=== PATIENT | female | born 1985 | race Caucasian/White ===

== ENCOUNTER 2016-05-30 20:31 | Emergency (ER) | payer OTHER ==
[2015-04-08 07:51] VITALS: BMI 33.2
[2016-05-30 21:20] LABS: APPEARANCE TURBID (CLEAR); BILIRUBIN NEGATIVE (NEGATIVE); COLOR YELLOW (YELLOW); GLUCOSE NEGATIVE (NEGATIVE); KETONE NEGATIVE (NEGATIVE); LEUKOCYTE ESTERASE TRACE (NEGATIVE); NITRITE NEGATIVE (NEGATIVE); PROTEIN TRACE mg/dL (NEGATIVE); SPECIFIC GRAVITY 1.025 (1.005-1.020); UROBILINOGEN NORMAL (NORMAL)
[2016-05-30 21:21] LABS: EPITHELIAL CELLS 0-5 /hpf (0-5); WHITE CELLS - URINE 0-5 /hpf (0-5)
[2016-05-30 21:22] LABS: BACTERIA MANY /hpf (NONE SEEN)
[2016-05-30 21:41] LABS: HCG SERUM NEGATIVE (NEGATIVE)
[2016-05-30 22:34] LABS: BASOPHILS 0.3 % (0.0-2.0); EOSINOPHILS 0.7 % (0-7); HEMATOCRIT 44.2 % (36.0-48.0); HEMOGLOBIN 15.1 g/dL (12-16); IMMATURE GRANULOCYTES 0.2 % (0-5); LYMPHOCYTES 12.3 % (15-50); MCH 27.2 pg (26.0-34.0); MCHC 34.2 g/dL (31.0-37.0); MCV 79.5 fL (80.0-100.0); MEAN PLATELET VOLUME 11.5 fL (7.4-10.4); MONOCYTES 4.5 % (2-11); PLATELET COUNT 225 10x3/uL (130-400); RBC 5.56 10x6/uL (4.00-5.40); RDW 13.4 % (11.5-14.5); WBC 12.3 10x3/uL (4.8-10.8)
[2016-05-30 22:49] LABS: ALBUMIN 4.5 g/dL (3.4-5.0); ALKALINE PHOSPHATASE 68 U/L (46-116); ALT (SGPT) 109 U/L (10-68); BILIRUBIN - TOTAL 0.57 mg/dL (0.2-1.3); CALC OSMOLALITY 282 mosm/kg (275-300); CALCIUM 9.1 mg/dL (8.5-10.1); CARBON DIOXIDE 24.7 mmol/L (21.0-32.0); CHLORIDE - SERUM 103 mmol/L (98-107); CREATININE - SERUM 0.8 mg/dL (0.6-1.3); GLUCOSE 127 mg/dL (74-106); PROTEIN - SERUM 7.9 g/dL (6.4-8.2); SODIUM 141 mmol/L (136-145); UREA NITROGEN 12 mg/dL (7-18); eGFR NON AFRICAN AMERICAN 90 mL/min (90-120)
== END 2016-05-30 23:39 | disposition home or self-care (01) ==
LOC: D.ER 20:31
PROVIDERS: Emergency Medicine; Nurse Practitioner Family
DX: N23 Unspecified renal colic (principal); N20.1 Calculus of ureter; N39.0 Urinary tract infection, site not specified

== ENCOUNTER → 2017-09-19 07:28 | Outpatient (CLI) | payer OTHER ==
[2015-04-08 07:51] VITALS: BMI 33.2
[~2017-09-19 07:28] MED LIST: IBUDONE 10-2001 TAB PO; LOPRESSOR25 MG PO; OMEGA-3100 MG PO
== END | disposition home or self-care (01) ==
LOC: D.NM 07:28
DX: K80.20 Calculus of gallbladder without cholecystitis without obstruction (principal)

== ENCOUNTER 2017-10-25 07:30 | Day surgery (SDC) | payer OTHER ==
[2017-10-23 09:22] LABS: EOSINOPHILS 2.7 % (0-7); HEMATOCRIT 45.3 % (36.0-48.0); HEMOGLOBIN 15.7 g/dL (12-16); IMMATURE GRANULOCYTES 0.2 % (0-5); LYMPHOCYTES 37.4 % (15-50); MCH 27.5 pg (26.0-34.0); MCHC 34.7 g/dL (31.0-37.0); MCV 79.3 fL (80.0-100.0); MEAN PLATELET VOLUME 10.9 fL (7.4-10.4); MONOCYTES 8.9 % (2-11); NEUTROPHILS 49.8 % (40-80); PLATELET COUNT 200 10x3/uL (130-400); RBC 5.71 10x6/uL (4.00-5.40); RDW 13.1 % (11.5-14.5); WBC 5.2 10x3/uL (4.8-10.8)
[2017-10-23 09:32] LABS: CALC OSMOLALITY 270 mosm/kg (275-300); CALCIUM 8.6 mg/dL (8.5-10.1); CARBON DIOXIDE 27.1 mmol/L (21.0-32.0); CHLORIDE - SERUM 104 mmol/L (98-107); CREATININE - SERUM 0.9 mg/dL (0.6-1.3); GLUCOSE 106 mg/dL (74-106); POTASSIUM - SERUM 4.1 mmol/L (3.5-5.1); SODIUM 136 mmol/L (136-145); UREA NITROGEN 9 mg/dL (7-18); eGFR NON AFRICAN AMERICAN 78 mL/min (90-120)
[~2017-10-25] VITALS: Ht 167.6 cm; Wt 89.4 kg
--- NOTE | ~2017-10-25 | OP ---
PATIENT NAME: GODFREY CANALES MEDICAL RECORD: [id number] :89 LOCATION:D.OPS ADMISSION DATE: SURGEON: JAN OJEDA MD DATE OF OPERATION: 10/25/2017 PREOPERATIVE DIAGNOSES: 1. Gallstones. 2. Elevated liver function tests. 3. Hypertension. POSTOPERATIVE DIAGNOSES: 1. Gallstones. 2. Elevated liver function tests. 3. Hypertension. PROCEDURES: 1. Laparoscopic cholecystectomy. 2. Liver biopsy. SURGEON: Jan Ojeda MD REPORT OF PROCEDURE: The patient's abdomen was prepped and draped in sterile fashion. A semicircular incision was made on the inferior aspect of the umbilicus, 0 Vicryls were placed in the fascia bilaterally and the fascia was incised with a 15-blade. I then bluntly entered the peritoneal cavity and placed a 12-mm Kamryn port. Under direct visualization, a 5 mm trocar was placed in the epigastrium and 2 more 5-mm trocars were placed in the right subcostal region. The gallbladder was elevated. The cystic artery and cystic duct were dissected free and these were clipped proximally and distally and ligated in standard fashion. The gallbladder was taken off the liver bed using electrocautery and placed into an Endo Catch bag. The right upper quadrant was irrigated out and any bleeding that was found was treated with electrocautery. At this point, a liver biopsy tool was inserted and 4 separate biopsies were performed with a Mahamed-Cut 14-gauge biopsy device. Any bleeding from the liver bed was then treated with electrocautery. At the conclusion of the case, there was no sign of any active bleeding. At this point, the ports and insufflation were then removed and the gallbladder was taken out through the umbilicus. The umbilical fascia was closed with interrupted 0 Vicryls times 3. The wounds were then irrigated out with normal saline and infused with 10 mL of 0.25% Marcaine with epinephrine. The skin incisions were all closed with subcutaneous 5-0 Monocryl and dressed appropriately. COMPLICATIONS: None. CONDITION: Stable. ANESTHESIA: General endotracheal and local. BLOOD LOSS: Minimal. TRANSINT:[id number] Voice Confirmation ID: [id number] DOCUMENT ID: [id number] OPERATIVE REPORT [id number] GODFREY CANALES JAN OJEDA MD at 1041 CC: SHARI,CRAIG ANP [id number] DICTATION DATE: 10/25/17 1151 CHIEF PILOT: 10/25/17 1157 [facility] [place] 10/25/17 [id number] [place] [id number]
[~2017-10-25 07:30] MED LIST changes: -IBUDONE 10-2001 TAB PO
[2017-10-25 09:07] LABS: HCG URINE NEGATIVE (NEGATIVE)
[2017-10-25 09:15] VITALS: BP 141/91; Ht 167.6 cm; Wt 89.4 kg
[2017-10-25] MEDS ORDERED: IBUDONE 10-2001 TAB PO (11:47)
== END 2017-10-25 14:30 | disposition home or self-care (01) ==
LOC: D.OPS 07:30 → D.PAN 09:50 → D.OPS 10:00
PROVIDERS: Surgery
DX: K80.20 Calculus of gallbladder without cholecystitis without obstruction (principal); R94.5 Abnormal results of liver function studies; I10 Essential (primary) hypertension; Z01.812 Encounter for preprocedural laboratory examination